=== PATIENT | female | born 1950 | race Two or more races ===

== ENCOUNTER 2023-01-08 11:47 | Emergency (ER) | payer OTHER ==
[~2023-01-08] VITALS: Ht 162.6 cm; Wt 63.1 kg
[2023-01-08] MEDS ORDERED: PANTOPRAZOLE 40 MG/10 ML VIAL INJ IV ONE (12:45)
[2023-01-08] MEDS ORDERED: SODIUM CHLORIDE 0.9% 500 ML IVB ONE (12:45)
[2023-01-08] MEDS ORDERED: MORPHINE SULFATE 4 MG/ML SYR/VIAL IV ONE (12:45)
[2023-01-08] MEDS ORDERED: ONDANSETRON HCL 4 MG/2 ML VIAL IV ONE (12:45)
[2023-01-08 13:10] LABS: Basophils # (auto) 0 10 ^3/uL (0-0.2); Basophils % (auto) 0.3 % (0.0-2.0); Eosinophils # (auto) 0 10 ^3/uL (0-0.8); Hemoglobin 10.1 g/dL (12.2-16.2); Lymphocytes # (auto) 1.9 10 ^3/uL (0.4-5.4); Lymphocytes % (auto) 12.7 % (10.0-50.0); Mean Corpuscular Hemoglobin 28.2 pg (28.0-32.0); Mean Corpuscular Hgb Conc. 33.5 g/dL (32.0-36.0); Mean Corpuscular Volume 84.4 fL (80.0-100.0); Monocytes # (auto) 0.8 10 ^3/uL (0-1.3); Monocytes % (auto) 5.3 % (0.0-12.0); Neutrophils # (auto) 12.3 10 ^3/uL (1.6-8.6); Neutrophils % (auto) 81.7 % (37.0-80.0); Nucleated Red Blood Cells % 0.2 %; Red Blood Cells 3.56 10^6/uL (4.0-5.20); Red Cell Distribution Width 17.7 % (11.8-14.3)
[2023-01-08 14:00] LABS: Alanine Aminotransferase 17 U/L (7-40); Albumin 4.6 g/dL (3.2-4.8); Alkaline Phosphatase 77 U/L (46-116); Anion Gap 10 (5-15); Aspartate Aminotransferase 13 U/L (13-40); BUN/Creatinine Ratio 33.3 (10.0-20.0); Blood Urea Nitrogen 37 mg/dL (9-23); Calcium 9.6 mg/dL (8.7-10.4); Carbon Dioxide 17 mmol/L (20-30); Chloride 109 mmol/L (98-107); Glucose 153 mg/dL (74-106); Lipase 73 U/L (12-53); Potassium 3.4 mmol/L (3.5-5.1); Sodium 136 mmol/L (136-145)
[2023-01-08 14:01] LABS: Bilirubin, Total 0.3 mg/dL (0.2-1.0); Total Protein 6.8 g/dL (5.7-8.2)
[2023-01-08 18:50] LABS: Urine Bacteria NONE SEEN /hpf (None Seen); Urine Blood Negative /uL (Negative); Urine Clarity HAZY (Clear); Urine Color Yellow (Yellow); Urine Hyaline Cast MOD /lpf (0 - 2); Urine Mucus MANY (None Seen); Urine Protein, UAD 1+ (Negative); Urine Specific Gravity 1.024 (1.001-1.035); Urine Urobilinogen Normal (Negative); Urine WBC 77 /hpf (0 - 5); Urine pH 6.5 (5.0-8.0)
[2023-01-08] MEDS ORDERED: cefTRIAXone 1GM/50ML D5W 50 ML IV ONE (20:00)
[2023-01-08] MEDS ORDERED: CIPR-173 PO (21:00)
[2023-01-08] MEDS ORDERED: PANT40TA2 PO (21:05)
[2023-01-08] MEDS ORDERED: ZOFR4T PO (21:05)
[2023-01-08 22:58] VITALS: BP 141/78; PULSE 99; RESP 18; TEMP 97.8; O2SAT 99
== END 2023-01-08 22:51 | disposition home or self-care (01) ==
LOC: ER 11:47
DX: N39.0 Urinary tract infection, site not specified (principal); K29.70 Gastritis, unspecified, without bleeding; Z79.899 Other long term (current) drug therapy
CPT/HCPCS: 36415; 74176; 80053; 81001; 83690; 83735; 85025; 86850; 86900; 86901; 93005; 96361; 96365; 96375; 99284; C9113; J0696; J2270; J2405; J7040

== ENCOUNTER 2023-11-10 18:59 | Inpatient (IN) | payer OTHER ==
[~2023-11-10] VITALS: Ht 162.6 cm; Wt 65.1 kg
[~2023-11-10 18:59] MED LIST: CIPR-173 PO; PANT40TA2 PO; ZOFR4T PO
[2023-11-10 19:48] LABS: Basophils # (auto) 0.1 10 ^3/uL (0-0.2); Basophils % (auto) 0.4 % (0.0-2.0); Eosinophils # (auto) 0 10 ^3/uL (0-0.8); Eosinophils % (auto) 0.2 % (0.0-7.0); Hematocrit 26.3 % (36.0-46.0); Lymphocytes # (auto) 1.4 10 ^3/uL (0.4-5.4); Mean Corpuscular Hemoglobin 23.5 pg (28.0-32.0); Mean Corpuscular Hgb Conc. 30.5 g/dL (32.0-36.0); Mean Corpuscular Volume 77.2 fL (80.0-100.0); Monocytes # (auto) 0.6 10 ^3/uL (0-1.3); Monocytes % (auto) 4.1 % (0.0-12.0); Neutrophils # (auto) 13.4 10 ^3/uL (1.6-8.6); Neutrophils % (auto) 86.3 % (37.0-80.0); Red Blood Cells 3.41 10^6/uL (4.0-5.20); White Blood Cell 15.5 10^3/uL (4.4-10.8)
[2023-11-10 19:49] LABS: Red Cell Distribution Width 24.5 % (11.8-14.3)
[2023-11-10 20:02] LABS: INR 1.08 (0.9-1.15); Prothrombin Time 11.4 sec (9.3-11.8)
[2023-11-10 20:07] LABS: Alanine Aminotransferase 12 U/L (7-40); Albumin 3.7 g/dL (3.2-4.8); Alkaline Phosphatase 48 U/L (46-116); Anion Gap 10 (5-15); Aspartate Aminotransferase 10 U/L (13-40); Blood Urea Nitrogen 39 mg/dL (9-23); Calcium 8.7 mg/dL (8.7-10.4); Carbon Dioxide 21 mmol/L (20-30); Chloride 114 mmol/L (98-107); Glucose 140 mg/dL (74-106); Potassium 4.1 mmol/L (3.5-5.1); Sodium 145 mmol/L (136-145)
[2023-11-10 20:08] LABS: Bilirubin, Total 0.4 mg/dL (0.2-1.0); Total Protein 5.9 g/dL (5.7-8.2)
[2023-11-10] MEDS: SODIUM CHLORIDE 0.9% 1,000 ML IV ONE (20:39)
[2023-11-10] MEDS: PANTOPRAZOLE 40 MG/10 ML VIAL INJ IV ONE (20:43)
[2023-11-10] MEDS: ONDANSETRON HCL 4 MG/2 ML VIAL IV ONE (20:43)
[2023-11-10 21:40] VITALS: BP 108/59; PULSE 95; RESP 13; TEMP 98.3
[2023-11-10 21:50] VITALS: BP 110/55; PULSE 88; RESP 11; TEMP 98.3
[2023-11-10 22:11] VITALS: BP 112/53; PULSE 85; RESP 15; TEMP 98.2
[2023-11-10] MEDS: PANTOPRAZOLE 40mg/50ML NS AE 50 ML IV SCH (22:33)
[2023-11-10] MEDS: SODIUM CHLORIDE 0.9% 1,000 ML IV SCH (23:00)
[2023-11-10] MEDS: MORPHINE SULFATE INJ 2 MG/ml SYRG IV PRN (23:05)
[2023-11-11 00:46] LABS: Basophils # (auto) 0 10 ^3/uL (0-0.2); Basophils % (auto) 0.4 % (0.0-2.0); Eosinophils # (auto) 0 10 ^3/uL (0-0.8); Hematocrit 32.9 % (36.0-46.0); Lymphocytes # (auto) 2.1 10 ^3/uL (0.4-5.4); Lymphocytes % (auto) 15.7 % (10.0-50.0); Mean Corpuscular Hemoglobin 25.2 pg (28.0-32.0); Mean Corpuscular Hgb Conc. 27.3 g/dL (32.0-36.0); Mean Corpuscular Volume 92.4 fL (80.0-100.0); Monocytes # (auto) 0.8 10 ^3/uL (0-1.3); Monocytes % (auto) 5.8 % (0.0-12.0); Neutrophils # (auto) 10.6 10 ^3/uL (1.6-8.6); Neutrophils % (auto) 78.1 % (37.0-80.0); Red Blood Cells 3.56 10^6/uL (4.0-5.20); Red Cell Distribution Width 24.2 % (11.8-14.3); White Blood Cell 13.5 10^3/uL (4.4-10.8)
[2023-11-11 00:57] VITALS: BP 125/59; PULSE 87; RESP 10; TEMP 98.5
[2023-11-11 01:06] LABS: Anisocytosis Slight; Hypochromia Slight; Platelet Estimate Adequate
[2023-11-11 02:02] LABS: Urine Bacteria FEW /hpf (None Seen); Urine Blood Negative /uL (Negative); Urine Clarity Clear (Clear); Urine Color Light-Yellow (Yellow); Urine Hyaline Cast FEW /lpf (0 - 2); Urine Mucus FEW (None Seen); Urine Protein, UAD TRACE (Negative); Urine Specific Gravity 1.048 (1.001-1.035); Urine Urobilinogen Normal (Negative); Urine WBC 5 /hpf (0 - 5); Urine pH 5.5 (5.0-9.0)
[2023-11-11 05:31] LABS: Eosinophils # (auto) 0 10 ^3/uL (0-0.8); Eosinophils % (auto) 0.4 % (0.0-7.0); Hemoglobin 8.5 g/dL (12.2-16.2); Monocytes # (auto) 0.7 10 ^3/uL (0-1.3); Neutrophils # (auto) 9.2 10 ^3/uL (1.6-8.6)
[2023-11-11 05:35] LABS: Basophils # (auto) 0 10 ^3/uL (0-0.2); Basophils % (auto) 0.2 % (0.0-2.0); Hematocrit 27.3 % (36.0-46.0); Mean Corpuscular Hemoglobin 25.5 pg (28.0-32.0); Mean Corpuscular Hgb Conc. 31.2 g/dL (32.0-36.0); Mean Corpuscular Volume 81.6 fL (80.0-100.0); Neutrophils % (auto) 76.4 % (37.0-80.0); Red Blood Cells 3.35 10^6/uL (4.0-5.20); Red Cell Distribution Width 22.5 % (11.8-14.3)
[2023-11-11 05:41] LABS: Anion Gap 7 (5-15); Carbon Dioxide 21 mmol/L (20-30); Chloride 119 mmol/L (98-107); Potassium 4.2 mmol/L (3.5-5.1); Sodium 147 mmol/L (136-145)
[2023-11-11 05:43] LABS: Calcium 8.6 mg/dL (8.7-10.4)
[2023-11-11 05:47] LABS: BUN/Creatinine Ratio 34.1 (10.0-20.0); Blood Urea Nitrogen 30 mg/dL (9-23); Glucose 93 mg/dL (74-106)
[2023-11-11 07:35] VITALS: PULSE 73; RESP 14; O2SAT 97
[2023-11-11 13:19] LABS: Hemoglobin 8.1 g/dL (12.2-16.2)
[2023-11-11 19:46] LABS: Hematocrit 25.2 % (36.0-46.0); Hemoglobin 7.6 g/dL (12.2-16.2)
[2023-11-11] MEDS ORDERED: HYDROcodone-ACET 5/325MG TAB PO PRN ×2 (21:30→22:00)
[2023-11-11] MEDS: ONDANSETRON HCL 4 MG/2 ML VIAL IV PRN (22:43)
[2023-11-11] MEDS: MORPHINE SULFATE INJ 2 MG/ml SYRG IV PRN (22:43)
[2023-11-12 01:20] LABS: Hemoglobin 8.1 g/dL (12.2-16.2)
[2023-11-12] MEDS: HYDROcodone-ACET 5/325MG TAB PO PRN (02:25)
[2023-11-12 04:54] LABS: Chloride 115 mmol/L (98-107); Potassium 3.8 mmol/L (3.5-5.1); Sodium 146 mmol/L (136-145)
[2023-11-12 04:55] LABS: Anion Gap 9 (5-15); Carbon Dioxide 22 mmol/L (20-30)
[2023-11-12 05:00] LABS: BUN/Creatinine Ratio 20.8 (10.0-20.0); Blood Urea Nitrogen 16 mg/dL (9-23); Glucose 87 mg/dL (74-106)
[2023-11-12 05:03] LABS: Basophils # (auto) 0 10 ^3/uL (0-0.2); Eosinophils # (auto) 0.2 10 ^3/uL (0-0.8); Eosinophils % (auto) 1.8 % (0.0-7.0); Lymphocytes # (auto) 1.6 10 ^3/uL (0.4-5.4); Monocytes # (auto) 0.5 10 ^3/uL (0-1.3); White Blood Cell 8.7 10^3/uL (4.4-10.8)
[2023-11-12 05:08] LABS: Basophils % (auto) 0.5 % (0.0-2.0); Hematocrit 26.2 % (36.0-46.0); Hemoglobin 8.1 g/dL (12.2-16.2); Lymphocytes % (auto) 18.7 % (10.0-50.0); Mean Corpuscular Hemoglobin 25.8 pg (28.0-32.0); Mean Corpuscular Hgb Conc. 31.1 g/dL (32.0-36.0); Monocytes % (auto) 5.7 % (0.0-12.0); Neutrophils # (auto) 6.4 10 ^3/uL (1.6-8.6); Neutrophils % (auto) 73.3 % (37.0-80.0); Nucleated Red Blood Cells % 0.1 %; Red Blood Cells 3.16 10^6/uL (4.0-5.20)
[2023-11-12 05:09] LABS: Red Cell Distribution Width 22.9 % (11.8-14.3)
[2023-11-12 08:00] VITALS: PULSE 80; RESP 12; O2SAT 100
[2023-11-12] MEDS ORDERED: NALOXONE HCL 0.4 MG/ML VIAL ONE (10:47)
[2023-11-12] MEDS ORDERED: diphenhdrAMINE HCL 50 MG/1 ML VL ONE (10:47)
[2023-11-12] MEDS ORDERED: FLUMAZENIL 0.1 MG/ML INJ 10ML MDV IV ONE (10:47)
[2023-11-12] MEDS ORDERED: SODIUM CHLORIDE LOCK 10 ML ONE (10:47)
[2023-11-12 12:34] LABS: Hematocrit 25.6 % (36.0-46.0)
[2023-11-12 14:00] VITALS: PULSE 80; RESP 16; O2SAT 100
[2023-11-12] MEDS: LIDOCAINE VISCOUS 2% 15ML UD ONE (14:02)
[2023-11-12] MEDS: MIDAZOLAM HCL 5 MG/ML-1ML VIAL ONE (14:04)
[2023-11-12] MEDS: fentaNYL CITRATE 100 MCG/2 ML VL ONE (14:04)
[2023-11-12] MEDS: SUCRALFATE 1 GM/10 ML ORAL SUSP PO SCH (17:00)
[2023-11-12 17:23] VITALS: BP 145/69; PULSE 86; RESP 16; TEMP 98.2; O2SAT 100
[2023-11-12 17:49] VITALS: PULSE 86; RESP 16
[2023-11-12] MEDS: LIDOCAINE 5% TOPICAL PATCH TOP ONE (17:54)
[2023-11-12 18:45] LABS: Hemoglobin 7.5 g/dL (12.2-16.2)
[2023-11-12 18:47] LABS: Hematocrit 23.6 % (36.0-46.0)
[2023-11-12] MEDS: D5W/SOD CHL 0.45% 1,000 ML IV SCH (18:52)
[2023-11-12 20:00] VITALS: PULSE 81; RESP 18
[2023-11-12] MEDS: PANTOPRAZOLE 40 MG/10 ML VIAL INJ IV SCH (20:24)
[2023-11-12 21:00] VITALS: BP 110/58; PULSE 80; RESP 18; TEMP 97.7; O2SAT 100
[2023-11-12] MEDS: MORPHINE SULFATE INJ 2 MG/ml SYRG IV PRN (22:30)
[2023-11-13] VITALS (7 sets, daily range): BP systolic 100–137; BP diastolic 53–71; PULSE 65–87; RESP 16–20; TEMP 97.9–99.1; O2SAT 93–97
[2023-11-13 00:36] LABS: Hematocrit 22.3 % (36.0-46.0); Hemoglobin 7.1 g/dL (12.2-16.2)
[2023-11-13 08:14] LABS: Basophils # (auto) 0 10 ^3/uL (0-0.2); Hemoglobin 7.2 g/dL (12.2-16.2); Lymphocytes # (auto) 1.1 10 ^3/uL (0.4-5.4); Neutrophils # (auto) 5.2 10 ^3/uL (1.6-8.6); Red Cell Distribution Width 23.3 % (11.8-14.3); White Blood Cell 7.1 10^3/uL (4.4-10.8)
[2023-11-13 08:15] LABS: Basophils % (auto) 0.6 % (0.0-2.0); Eosinophils # (auto) 0.2 10 ^3/uL (0-0.8); Eosinophils % (auto) 3.5 % (0.0-7.0); Hematocrit 22.6 % (36.0-46.0); Lymphocytes % (auto) 15.9 % (10.0-50.0); Mean Corpuscular Hemoglobin 26.3 pg (28.0-32.0); Mean Corpuscular Hgb Conc. 31.9 g/dL (32.0-36.0); Mean Corpuscular Volume 82.3 fL (80.0-100.0); Monocytes # (auto) 0.5 10 ^3/uL (0-1.3); Monocytes % (auto) 6.6 % (0.0-12.0); Neutrophils % (auto) 73.4 % (37.0-80.0); Red Blood Cells 2.74 10^6/uL (4.0-5.20)
[2023-11-13 08:25] LABS: Chloride 116 mmol/L (98-107); Potassium 3.5 mmol/L (3.5-5.1); Sodium 146 mmol/L (136-145)
[2023-11-13 08:26] LABS: Anion Gap 6 (5-15); Carbon Dioxide 24 mmol/L (20-30)
[2023-11-13 08:31] LABS: BUN/Creatinine Ratio 8.9 (10.0-20.0); Blood Urea Nitrogen 7 mg/dL (9-23); Glucose 112 mg/dL (74-106)
[2023-11-13 12:42] LABS: Hematocrit 23.9 % (36.0-46.0); Hemoglobin 7.7 g/dL (12.2-16.2)
[2023-11-13] MEDS: GABAPENTIN 100 MG CAP PO ONE (16:23)
[2023-11-13] MEDS: NORTRIPTYLINE HCL 10 MG CAP PO SCH (21:32)
[2023-11-13] MEDS: GABAPENTIN 100 MG CAP PO SCH (21:32)
[2023-11-14] VITALS (8 sets, daily range): BP systolic 118–166; BP diastolic 55–101; PULSE 63–81; RESP 16–19; TEMP 98–98.4; O2SAT 95–98
[2023-11-14 07:06] LABS: Basophils # (auto) 0 10 ^3/uL (0-0.2); Eosinophils # (auto) 0.3 10 ^3/uL (0-0.8); Lymphocytes # (auto) 1.2 10 ^3/uL (0.4-5.4); Monocytes # (auto) 0.5 10 ^3/uL (0-1.3)
[2023-11-14 07:08] LABS: Basophils % (auto) 0.5 % (0.0-2.0); Eosinophils % (auto) 4.6 % (0.0-7.0); Hematocrit 24.7 % (36.0-46.0); Lymphocytes % (auto) 20.3 % (10.0-50.0); Mean Corpuscular Hemoglobin 26.3 pg (28.0-32.0); Mean Corpuscular Hgb Conc. 32.3 g/dL (32.0-36.0); Mean Corpuscular Volume 81.5 fL (80.0-100.0); Monocytes % (auto) 8.6 % (0.0-12.0); Neutrophils # (auto) 3.9 10 ^3/uL (1.6-8.6); Red Blood Cells 3.03 10^6/uL (4.0-5.20)
[2023-11-14 07:11] LABS: Anion Gap 8 (5-15); Carbon Dioxide 23 mmol/L (20-30); Chloride 116 mmol/L (98-107); Potassium 3.3 mmol/L (3.5-5.1); Sodium 147 mmol/L (136-145)
[2023-11-14 07:12] LABS: Calcium 9.2 mg/dL (8.7-10.4)
[2023-11-14 07:17] LABS: BUN/Creatinine Ratio 6.8 (10.0-20.0); Blood Urea Nitrogen 6 mg/dL (9-23); Glucose 97 mg/dL (74-106)
[2023-11-14 11:01] LABS: Platelet Estimate Decreased
[2023-11-14 11:02] LABS: Ovalocytes FEW
[2023-11-14] MEDS ORDERED: GABA-1250 PO (11:57)
[2023-11-14] MEDS ORDERED: FERR-7 PO (11:57)
[2023-11-14] MEDS ORDERED: SUCR1SUS26 PO (11:57)
[2023-11-14] MEDS ORDERED: PANT40TA2 PO (11:57)
== END 2023-11-14 14:14 | disposition home health service (06) | DRG 377 ==
LOC: ER 18:59 → EDUNIT# 18:59 → EDBD 18:59 → TELE 20:45 → TELE-CENTR 11-12 17:46
PROVIDERS: ADMIT Nurse Practitioner Family; ATTEND Nurse Practitioner Family
PROC: 30233N1 Transfusion of Nonautologous Red Blood Cells into Peripheral Vein, Percutaneous Approach (ICD-10-PCS; 2023-11-10)
PROC: 0W3P8ZZ Control Bleeding in Gastrointestinal Tract, Via Natural or Artificial Opening Endoscopic (ICD-10-PCS; 2023-11-12)
PROC: 0DB68ZX Excision of Stomach, Via Natural or Artificial Opening Endoscopic, Diagnostic (ICD-10-PCS; principal; 2023-11-12 14:00)
DX: K26.4 Chronic or unspecified duodenal ulcer with hemorrhage (principal); N17.0 Acute kidney failure with tubular necrosis; D62 Acute posthemorrhagic anemia; K29.70 Gastritis, unspecified, without bleeding; G50.0 Trigeminal neuralgia; I95.9 Hypotension, unspecified; K44.9 Diaphragmatic hernia without obstruction or gangrene; Z82.0 Family history of epilepsy and other diseases of the nervous system; Z87.891 Personal history of nicotine dependence
CPT/HCPCS: 36415; 43239; 43255; 71045; 80048; 80053; 81001; 83605; 85014; 85018; 85025; 85610; 86850; 86900; 86901; 86920; 87040; 93005; 96374; 96375; 97163; G0378; J2250; J2405; J2470